=== PATIENT | male | born 2000 | race Caucasian/White ===

== ENCOUNTER 2022-01-22 11:02 | Emergency (ER) | payer OTHER ==
[~2022-01-22] VITALS: Ht 188 cm; Wt 77.3 kg
[2022-01-22] MEDS ORDERED: LIDOCAINE 2% MDV 20ML VIAL SC ONE (12:10)
[2022-01-22] MEDS ORDERED: ceFAZolin SOD 1 GM in D5W MINI-BAG PLUS 50 ML IV ONE (12:15)
[2022-01-22] MEDS ORDERED: BOOSTRIX/ADACEL VACCINE (DIPHTH/PERTUSS/ACELL/TETANUS) 0.5ML SYR IM ONE (12:15)
[2022-01-22] MEDS ORDERED: BACITRACIN OINTMENT 30GM TUBE TOP ONE (13:00)
[2022-01-22] MEDS ORDERED: CEPH500C PO (13:05)
[2022-01-22 13:12] VITALS: BP 136/66
== END 2022-01-22 13:31 | disposition home or self-care (01) ==
LOC: M ED 11:02
DX: S62.637B Displaced fracture of distal phalanx of left little finger, initial encounter for open fracture (principal); W23.0XXA Caught, crushed, jammed, or pinched between moving objects, initial encounter; Y92.89 Other specified places as the place of occurrence of the external cause; Y99.0 Civilian activity done for income or pay
CPT/HCPCS: 12013; 73140; 90471; 90715; 96365; 99284; J0690